=== PATIENT | female | born 1990 | race Caucasian/White ===

== ENCOUNTER 2018-03-27 18:11 | Emergency (ER) | payer OTHER ==
[~2018-03-27] VITALS: Ht 157.5 cm; Wt 54.4 kg
[~2018-03-27 18:11] MED LIST: AMOXICILLIN500 MG PO; IMODIUM A-D2 MG PO; NASONEX17 GM NS; PEPCID20 MG PO; PRILOSEC20 MG PO; ZOFRAN4 MG SL
== END 2018-03-27 23:27 | disposition home or self-care (01) ==
LOC: ER 18:11
DX: K52.89 Other specified noninfective gastroenteritis and colitis (principal)

== ENCOUNTER 2018-05-23 19:48 | Emergency (ER) | payer OTHER ==
[~2018-05-23] VITALS: Ht 157.5 cm; Wt 56.7 kg
== END 2018-05-23 22:26 | disposition home or self-care (01) ==
LOC: ER 19:48
DX: B34.9 Viral infection, unspecified (principal)

== ENCOUNTER 2018-12-10 02:06 | Emergency (ER) | payer OTHER ==
[~2018-12-10] VITALS: Ht 157.5 cm; Wt 56.7 kg
[2018-12-10] MEDS ORDERED: PERCOCET 5-3251 EACH PO (09:06)
[2018-12-10] MEDS ORDERED: VOLTAREN-XR100 MG PO (09:06)
== END 2018-12-10 09:12 | disposition home or self-care (01) ==
LOC: ER 02:06
DX: N83.292 Other ovarian cyst, left side (principal); N83.291 Other ovarian cyst, right side

== ENCOUNTER 2019-04-09 09:33 | Emergency (ER) | payer OTHER ==
[~2019-04-09] VITALS: Ht 157.5 cm; Wt 59.0 kg
[~2019-04-09 09:33] MED LIST changes: +PERCOCET 5-3251 EACH PO; +VOLTAREN-XR100 MG PO
== END 2019-04-09 17:27 | disposition home or self-care (01) ==
LOC: ER 09:33
DX: B33.8 Other specified viral diseases (principal); B96.0 Mycoplasma pneumoniae [M. pneumoniae] as the cause of diseases classified elsewhere

== ENCOUNTER 2020-05-05 11:19 | Emergency (ER) | payer OTHER ==
[~2020-05-05] VITALS: Ht 152.4 cm; Wt 56.7 kg
[2020-05-05] MEDS ORDERED: PERCOCET 5-3251 EACH PO (14:04)
[2020-05-05] MEDS ORDERED: VOLTAREN-XR100 MG PO (14:04)
== END 2020-05-05 14:10 | disposition home or self-care (01) ==
LOC: ER 11:19
DX: S80.01XA Contusion of right knee, initial encounter (principal); W18.39XA Other fall on same level, initial encounter; Y93.89 Activity, other specified; Y92.091 Bathroom in other non-institutional residence as the place of occurrence of the external cause; Y99.8 Other external cause status

== ENCOUNTER 2021-01-03 02:29 | Inpatient (IN) | payer OTHER ==
[~2021-01-03] VITALS: Ht 157.5 cm; Wt 59.4 kg
[2021-01-03] MEDS ORDERED: KEPPRA500 MG (02:38)
== END 2021-01-05 14:37 | disposition left against medical advice (07) | DRG 392 ==
LOC: ER 02:29 → MEDJ 13:31 → SEC-K 16:48 → MEDJ 16:49
PROVIDERS: ADMIT Internal Medicine; ATTEND Internal Medicine
DX: K52.89 Other specified noninfective gastroenteritis and colitis (principal); K62.5 Hemorrhage of anus and rectum; E86.0 Dehydration; N80.9 Endometriosis, unspecified; Z20.822 Contact with and (suspected) exposure to COVID-19